=== PATIENT | male | born 2000 | race Caucasian/White ===

== ENCOUNTER → 2024-08-18 11:49 | Outpatient (REF) | payer SELFPAY | LOC: RAD 11:49 | PROVIDERS: ATTENDING PHYSICIAN Family Medicine | DX: R07.9 Chest pain, unspecified (principal) | CPT/HCPCS: 71046 ==

== ENCOUNTER 2025-03-13 08:17 | Emergency (ER) | payer OTHER, SELFPAY ==
[2025-03-13 08:43] VITALS: BP 141/95
--- NOTE | 2025-03-13 10:23 | ED.GENMED ---
History of Present Illness
General
Chief Complaint: Exposure-Chemical
Time Seen by Provider: 03/13/25 10:03
History of Present Illness
History of Present Illness:
24-year-old male without significant past medical history presenting for cough and shortness of breath. Patient reports that he was cleaning his bathroom 2 days ago with a chlorine dioxide solution. He feels that he used more than he was supposed
to and is since that irritation, cough with deep inspiration. Last night he noted difficulty sleeping. Denies fever. Denies any significant pain to his chest. Denies any history of asthma or lung disease. Denies any additional acute medical
complaints.
Past History
Past History
ED Past Medical History: None
ED Past Surgical History: None
Social History
Tobacco: Non-smoker
Personal: Single
Phy Exam
Physical Exam
Physical Exam:
General: Well-appearing, no clinical signs of dehydration, nontoxic and in no acute distress
HEENT: protecting airway
Neck: appears supple
CV: Normal heart rate, regular rhythm
Resp: No accessory muscle use, no increased work of breathing, mild end expiratory wheezing
Abd: no distension
Extremities: No deformities, no swelling
Neuro: alert, no focal neurologic deficit
: deferred
Rectal: deferred
Psych: Normal affect
Skin: Intact
Course
Orders/Labs/Results
Orders:
Orders
03/13/25 10:10
Ipratropium/Albuterol Sulfate [Duoneb] 3 ml INH R NOW ONE
Chest [CR Chest - 2 Views ] Urgent
Comment:
Reason For Exam: SOB after inhalation
03/13/25 11:10
Ibuprofen [Motrin] 600 mg .ROUTE .STK-MED ONE
03/13/25 11:20
Ibuprofen [Motrin] 600 mg PO NOW STA
Vital Signs
Initial and Last Documented VS:
Initial Vital Signs
Temp Pulse Resp BP Pulse Ox
98.0 F 67 16 141/95 98
03/13/25 08:43 03/13/25 08:43 03/13/25 08:43 03/13/25 08:43 03/13/25 08:43
Last Documented Vital Signs
Temp Pulse Resp BP Pulse Ox
98.0 F 64 20 149/76 100
03/13/25 08:43 03/13/25 11:08 03/13/25 11:08 03/13/25 11:08 03/13/25 11:08
MDM/Problems Addressed
MDM/Problems Addressed:
24-year-old male presenting to the emergency department for cough and shortness of breath after using a cleaning solution in his bathroom. Vital signs on arrival are normal
On exam patient resting comfortably, no acute distress. No respiratory distress. Mild end expiratory wheezing on exam. Suspect mild pulmonary irritation. Will screen with chest x-ray imaging. For therapeutics, will start patient on DuoNeb. No
PE risk factors. No coronary risk factors. Will continue to closely monitor.
12:15 - Chest x-ray without significant acute pathology. Reassessment, notes improvement after breathing treatment. At this time feel stable for discharge. Will prescribe a inhaler. Return precautions discussed and patient verbalized
understanding
*Pulse Oximetry
SaO2: 98
Oxygen Mode of Delivery: Room air
Patient hypoxic: no
*Critical Care Note
Total Time (30-74mins, 75-104mins- exclusive of procedures): Not Applicable
ED Attending Note
-
Portions of this chart may have been created with voice recognition software.� Occasional wrong word or��sound alike� substitutions may have occurred due to the inherent limitations of voice recognition software.
Discharge Plan
Departure
Prescriptions:
No Action
prednisone 50 MG tablet
50 mg PO DAILY Qty: 3 0RF
epinephrine [EpiPen] 0.3 MG/0.3/SYRINGE auto-injector
0.3 mg IM PRN PRN (Reason: severe allergic reaction) Qty: 2 0RF
Referrals:
Sakshi Juan MD [Family Provider, Family Practice]
Interventions
Interventions:
*General Assessment Last Done: 03/13/25 10:38
*Neglect/Abuse Screening Last Done: 03/13/25 08:45
*ED COVID-19 Vaccine History Last Done: 03/13/25 10:38
*ED Influenza Vaccine History Last Done: 03/13/25 10:38
[facility] Fall Risk Assessment Tool Last Done: 03/13/25 10:38
*Risk Screen - Suicide (C-SSRS) Last Done: 03/13/25 08:45
ED-EENT Assessment Last Done: 03/13/25 10:37
ED- Pulmonary Assessment Last Done: 03/13/25 10:37
ED-Skin Assessment Last Done: 03/13/25 10:37
Discharge Date and Time
Print Language: BANGLADESHI
[2025-03-13] MEDS: DUONEB 3 ML INH (10:35)
[2025-03-13 11:08] VITALS: BP 149/76
[2025-03-13] MEDS: MOTRIN 600 MG PO (11:38)
== END 2025-03-13 13:04 | disposition home or self-care (01) ==
LOC: EMR 08:17
PROVIDERS: EMERGENCY PHYSICIAN Student in an Organized Health Care Education/Training Program; FAMILY PHYSICIAN Family Medicine
DX: R05.9 Cough, unspecified (principal); R06.02 Shortness of breath; R06.2 Wheezing
CPT/HCPCS: 94640; 99283; 71046